=== PATIENT | male | born 1995 | race Asian ===

== ENCOUNTER 2017-09-13 11:54 | Emergency (ER) | payer OTHER ==
[2017-09-13] MEDS: IBUPROFEN 600 MG TAB PO (15:01)
[2017-09-13] MEDS: ACETAMINOPHEN 325 MG TAB PO (15:01)
== END 2017-09-13 16:05 | disposition home or self-care (01) ==
LOC: FTE 11:54
DX: J20.9 Acute bronchitis, unspecified (principal)
CPT/HCPCS: 71045; 99284-25